=== PATIENT | female | born 1970 | race Caucasian/White ===

== ENCOUNTER 2023-09-02 15:42 | Emergency (ER) | payer OTHER, SELFPAY ==
--- NOTE | ~2023-09-02 | XR_ITS ---
EXAMINATION: XR sacrum coccyx min 2V DATE: 09/02/2023 17:00 INDICATION: Sacrococcygeal pain. Fall. TECHNIQUE: 3 views of the sacrum and coccyx were obtained. COMPARISON: None. FINDINGS: There is 3 mm anterolisthesis of L4-L5 and L5 on S1. There is moderate lumbar spondylosis. No fracture. IMPRESSION: 1. No fracture. Reviewed, dictated and finalized at location E. [employer] ROOM SERVICER IMPRESSION: 1. No fracture.
--- NOTE | ~2023-09-02 | XR_ITS ---
EXAMINATION: XR chest 2V 09/02/2023 17:00 INDICATION: Chest palpitations PROCEDURE: 2 view chest COMPARISON: 07/08/2007 FINDINGS: The lungs are clear. The cardiomediastinal silhouette is within normal limits. There are no pleural effusions. There is no pneumothorax suspected. IMPRESSION: 1: NO ACUTE CARDIOPULMONARY DISEASE. Reviewed, dictated and finalized at location L. [employer] VICE PRESIDENT
[2023-09-02 15:44] VITALS: BP 151/101; PULSE 106; RESP 20; TEMP 35.7; O2SAT 100
--- NOTE | 2023-09-02 15:55 | ECG_ITS ---
Measurements Intervals [place] Rate: 96 P: 32 MD: 152 QRS: 16 QRSD: 84 T: 14 QT: 335 QTc: 423 Interpretive Statements SINUS RHYTHM POSSIBLE LEFT ATRIAL ENLARGEMENT LOW QRS VOLTAGE IN PRECORDIAL LEADS CANNOT RULE OUT SEPTAL INFARCT, AGE INDETERMINATE BASELINE WANDER- I, II, III ABNORMAL ECG NO PREVIOUS ECG AVAILABLE FOR COMPARISON Electronically Signed On 09-02-2023 18:55:43 [employer] S[employer]ER by Randall Castillo D.O.
[2023-09-02 16:43] LABS: Basophils Absolute Auto 0.1 K/mm3 (0.0-0.1); Basophils Percent Auto 0.6 % (0.2-1.2); Eosinophils Absolute Auto 0.3 K/mm3 (0-0.3); Eosinophils Percent Auto 4.1 % (0-4.4); Hemoglobin 12.6 g/dL (12.0-15.0); Immature Granulocyte Absolute 0.02 K/mm3 (0.00-0.031); Immature Granulocyte Percent A 0.3 % (0-0.5); Lymphocytes Absolute Auto 1.63 K/mm3 (0.9-3.2); Lymphocytes Percent Auto 21.1 % (18.3-44.2); Mean Corpuscular HGB Conc 33.2 g/dl (32-36); Mean Corpuscular Hemoglobin 33.8 pg (26-34); Mean Corpuscular Volume 101.9 fl (80-100); Mean Platelet Volume 10.2 fl (7.4-10.4); Monocytes Absolute Auto 0.6 K/mm3 (0.1-0.6); Neutrophils Absolute Auto 5.1 K/mm3 (1.3-6.7); Neutrophils Percent Auto 65.9 % (45.5-73.1); Platelet Count Result 258 k/mm3 (150-375); Red Blood Count 3.73 M/mm3 (4.2-5.4); Red Cell Distribution Width 12.3 % (11.5-14.5); White Blood Count 7.7 K/mm3 (4.5-10.0)
[2023-09-02 16:52] LABS: Alanine Aminotransferase 40 U/L (6-35); Alkaline Phosphatase 65 U/L (38-126); Anion Gap 6 mmol/L (8-16); Aspartate Amino Transferase 54 U/L (14-36); Bilirubin,Total 0.5 mg/dL (0.2-1.3); Blood Urea Nitrogen 8 mg/dL (7-17); Calcium 9.1 mg/dL (8.4-10.2); Carbon Dioxide 30 mmol/L (22-30); Chloride 100 mmol/L (98-107); Estimated CRCL calculation 90 ml/min; Estimated Glomerular Filt Rate > 60; Glucose 115 mg/dL (65-110); Potassium 4.4 mmol/L (3.4-5.0); Sodium 136 mmol/L (137-145)
--- NOTE | 2023-09-02 16:57 | ED.ARRPALP ---
HPI - Arrhythmia/Palpitations General Chief Complaint: Arrhythmia/Palpitations Stated Complaint: elevated HR Time Seen by Provider: 09/02/23 15:54 Source: patient Mode of arrival: ambulatory Limitations: no limitations History of Present Illness HPI narrative: This is a 53-year-old female that presents to the emergency department for elevated heart rate. Reports she was at urgent care to be evaluated after a fall a couple of days prior. While she was there heart rate was elevated. She was sent to the ER for further evaluation. She reported associated lightheadedness. She is no longer symptomatic. Reports pain in her tailbone after slipping and falling onto her bottom. She did not hit her head or lose consciousness. Denies chest pain, shortness of breath, or lower extremity edema. Related Data Allergies Allergy/AdvReac Type Severity Reaction Status Date / Time amoxicillin Allergy rash Verified 05/14/11 17:00 THERMISOL Allergy Uncoded 05/14/11 16:51 Review of Systems Review of Systems: CONSTITUTIONAL: Denies fever EYES: Denies visual changes CARDIOVASCULAR: Denies chest pain, or edema. RESPIRATORY: Denies dyspnea. GASTROINTESTINAL: Denies vomiting MUSCULOSKELETAL: Reports back pain, joint pain, and myalgia. NEUROLOGIC: Denies numbness, or weakness. All systems reviewed & are unremarkable except as noted in HPI and below PMFSH Past Medical History Medical History (Updated 09/02/23 @ 19:02 by aTli Ott PA-C) History of anxiety History of gastroesophageal reflux (GERD) History of hyperlipidemia History of hypertension Social History Social History (Updated 09/02/23 @ 17:02 by Tali Ott PA-C) Smoking status: Never smoker Exam Narrative: GENERAL: Well-appearing, well-nourished, and in no acute distress. HEAD: Normocephalic, atraumatic. EYES: PERRLA and EOMI. ENT: Nares clear, no rhinorrhea or epistaxis. Mucous membranes moist. Oropharynx without tonsillar hypertrophy exudate or other lesions. Bilateral TMs pearly lawson non-bulging NECK: Supple. No adenopathy or masses. No JVD CHEST: Clear to auscultation. No respiratory distress. No wheezes rales or rhonchi HEART: Regular rate and rhythm. No murmur heard. Normal peripheral pulses. ABDOMEN: Soft, nontender, nondistended, normal active bowel sounds. EXTREMITIES: Normal range of motion. No edema. SKIN: Warm, dry, no rash. NEURO: No focal deficits. Alert and oriented x3. CN II-XII grossly intact PSYCH: Normal mood and affect Course Course Emergency Course: Patient updated on her workup and agrees with plan of care Vital Signs Vital signs: Vital Signs Temperature 96.2 F L 09/02/23 15:44 Pulse Rate 106 H 09/02/23 15:44 Respiratory Rate 20 09/02/23 15:44 Blood Pressure 151/101 H 09/02/23 15:44 Pulse Oximetry 100 09/02/23 15:44 Temperature 96.2 F L 09/02/23 15:44 Pulse Rate 106 H 09/02/23 15:44 Respiratory Rate 20 09/02/23 15:44 Blood Pressure 151/101 H 09/02/23 15:44 Pulse Oximetry 100 09/02/23 15:44 MDM - Arrhythmia/Palpitations MDM Narrative Medical decision making narrative: Patient presents to the ER for an episode of palpitations today. Reportedly her heart rate was in the 140s at urgent care. Sent in for further evaluation. mildly tachycardic at 1:06 a.m. upon arrival, this normalized with IV fluids. Patient has been in normal sinus rhythm while in the ED. CBC without concerning findings. Metabolic panel shows mild transaminitis, which patient reports is chronic. Baseline troponin is negative. D-dimer is not elevated. TSH is normal. Chest x-ray without acute cardiopulmonary abnormality. Patient also endorsing a fall several days prior with pain in her sacrum. Sacrum/ coccyx x-ray without acute findings. Patient was updated on workup. Resting comfortably. I did offer further evaluation with a Holter monitor. Patient reports she will follow-up with her primary for this. She was give
[2023-09-02 17:27] LABS: D Dimer 0.43 ug/mL (<0.48)
[2023-09-02 18:08] LABS: Troponin I < 0.012 ng/mL (0.000-0.034)
[2023-09-02 18:08] LABS: Thyroid Stimulating Hormone Reflex 0.771 uIU/mL (0.465-4.68)
[2023-09-02 19:10] VITALS: BP 134/91; PULSE 89; RESP 16; O2SAT 98
== END 2023-09-02 19:11 | disposition home or self-care (01) ==
PROVIDERS: Emergency Provider Physician Assistant
DX: R00.2 Palpitations (principal); S39.92XA Unspecified injury of lower back, initial encounter; I10 Essential (primary) hypertension; E78.5 Hyperlipidemia, unspecified; K21.9 Gastro-esophageal reflux disease without esophagitis; R94.31 Abnormal electrocardiogram [ECG] [EKG]; W01.0XXA Fall on same level from slipping, tripping and stumbling without subsequent striking against object, initial encounter
CPT/HCPCS: 36415; 71046; 72220; 80053; 84443; 84484; 85025; 85380; 93005; 99284